=== PATIENT | male | born 1965 | race Caucasian/White ===

== ENCOUNTER 2016-11-29 10:28 | Emergency (ER) | payer OTHER ==
[~2016-11-29] VITALS: Ht 190.5 cm; Wt 100.0 kg
[2016-11-29 10:42] VITALS: BP 165/110; PULSE 86; RESP 16; O2SAT 96
--- NOTE | 2016-11-29 11:00 | ED.REPORT ---
HPI-General Illness Date of Service Nov 29, 2016 ED Provider: Jermaine Jacobs DO The patient is a 51 year old male who presents to the emergency department requesting medical clearance for alcohol detox. The [facility] has a [facility] later [facility]. The patient has been drinking alcohol regularly over the last few years but over the last few weeks he has started to drink in the morning. He drinks 24 beers and moderate amount of vodka each day. His last drink was 1.5 hours ago. He is concerned and would like to go to alcohol detox. He has been through alcohol withdrawal in the past. He denies history of withdrawal seizures or hospitalization for withdrawal. He does not use illicit drugs or smoke tobacco. At this time he has experienced increased anxiety and a mild headache. He denies any other physical complaints. Nursing Notes Stated Complaint: DETOX Chief Complaint: Substance Abuse Nursing Notes Reviewed: Yes Allergies: Uncoded Allergies: EVERYTHING (Allergy, Unknown, 11/29/16) PT STATES SENSITIVITY TO ALL MEDICATIONS. Scheduled Lorazepam (Ativan) 1 Mg Tablet 1 MG PO ASDIRECTED 2mg po q6hrs x24hrs, 1mg po [id number], 1mg po q8hrs x24hrs, 1mg po q12hrs x24hrs, 1mg po General Time Seen by MD: 10:50 Chief Complaint Medical clearance Hx Obtained From: Patient, Spouse Arrived By: Walk-in Sudden in Onset?: No Onset Occurred: More than a week ago... Symptom Duration: Since onset Location: : Head Quality: Painful Severity: Current: No pain currently Severity: Maximum: Mild Recent Healthcare: No recent doctor visit, No recent hospitalization Similar Sx Previous: Yes Past Medical History Past Medical History Denies Family History Noncontributory Smoking History Former Smoker Social History Alcohol Use: >5 per day Drug Use: Denies drug use Other Social History: Good social support, Local resident Ambulatory Status Independent Review of Systems +alcohol abuse Full Review of Systems Constitutional: Denies: Chills, Fever Respiratory: Denies: Non-productive cough, Shortness of breath Cardiovascular: Denies: Chest pain GI: Denies: Abdominal pain, Diarrhea, Nausea, Vomiting Skin: Denies Rash Neurologic: Reports: Headache Psychiatric: Reports: Anxiety Complete sys rev & neg: except as marked. Physical Exam Vital Signs Vital Signs Date Time Temp Pulse Resp B/P Pulse Ox O2 Delivery O2 Flow Rate FiO2 11/29/16 14:04 37 90 16 152/100 94 Room Air 11/29/16 13:43 101 16 155/102 96 Room Air 11/29/16 10:42 36.6 86 16 165/110 96 Room Air Initial VS: Reviewed Head / Eyes: Atraumatic, Normocephalic, PERRL ENT: Mucous membranes moist, Conjunctiva normal, No scleral icterus Neck: Supple, Non-tender, Full range of motion Respiratory: Breath sounds normal, Clear to auscultation, No respiratory distress Cardiovascular: Regular rate & rhythm, Heart sounds normal, Intact distal pulses Abdomen / GI: Soft, Non-tender, No guarding, No rebound, No distention Lymphatic: No lymphadenopathy Extremities: Vascular intact, Neuro intact, No swelling, No tenderness Skin: Warm, Dry, No cyanosis Psychiatric: Mood/affect normal, Behavior normal, Normal thought content General/Constitutional: Awake, Alert, Cooperative Neurologic: Oriented X3, Speech NL, No motor deficits, No sensory deficits, Cerebellar NL, Memory NL No tremors. Interpretation & Diagnostics Interpretation & Diagnostics: Breathalyzer: 0.283 Lab Results Interpretation Test 11/29/16 14:32 Re-Eval/Medical Decision Med Decision/Clinical Course He is a good candidate for outpatient detox at [facility]. Will start Ativan taper at 2 mg q6h. Source of Hx: Old records Time of Eval: 11:06 Re-Evaluation/Progress Note: Discussed plan to call the detox center to make sure there is a bed. The patient will be discharged with a prescription for Ativan to help with withdrawal symptoms. All questions were addressed. Time of Eval: 12:01 Re-Evaluation/Progress Note: Discussed with the patient's significant other about plan to wait until his breathalyzer is below 0.250. Consultation #1: Call Returned at: 11:09 Note: Spoke with the ED social insurance analyst. He will contact [facility]. Will wait for alcohol to be below 0.250 before sending to [facility]. Consultation #2: Consulted With: cargo worker Call Returned at: 13:48 Note: There is a bed available at [facility] at 1600 today. The social insurance analyst feels comfortable with the patient being discharged with his friend. She will case picker the prescription, get his CPAP, and take him to [facility] at 1600. Counseled Regarding: Diagnosis, Lab results, Need for follow-up, When/why to return to ED Discharge & Departure Primary Impression: Alcohol abuse Disposition: Home Discharge Condition All VS Reviewed: Yes Condition: Stable Additional Instructions: Thank you for entrusting us with your care today. You are medically cleared. You have a bed at [facility] at 4 PM today. Get your Ativan prescription and CPAP machine. Use the Ativan as prescribed. Do not drink alcohol prior to going to [facility]. Please return to the emergency department for any new or concerning symptoms. Referrals: NOPCP (PCP) Scribe Attestation Portions of this note were transcribed by Pat Ordaz. I, Dr. Jacobs personally performed the history, physical exam and medical decision-making; I reviewed and confirmed the accuracy of the information in the transcribed note. Signed by: Miryam Goodman, 11/29/2016 and 1400. Jermaine Jacobs DO Nov 29, 2016 10:59 Pat Ordaz Nov 29, 2016 11:03
[2016-11-29 13:43] VITALS: BP 155/102; PULSE 101; RESP 16; O2SAT 96
[2016-11-29] MEDS ORDERED: LORA-303 PO (13:55)
[2016-11-29 14:04] VITALS: BP 152/100; PULSE 90; RESP 16; O2SAT 94
[2016-11-29] MEDS ORDERED: CHLO25CA10 PO (21:45)
== END 2016-11-29 14:05 | disposition home or self-care (01) ==
LOC: SED 10:28
DX: F10.10 Alcohol abuse, uncomplicated (principal); Z87.891 Personal history of nicotine dependence

== ENCOUNTER 2016-11-29 17:39 | Emergency (ER) | payer OTHER ==
[~2016-11-29] VITALS: Ht 190.5 cm; Wt 100.0 kg
[~2016-11-29 17:39] MED LIST: LORA-303 PO
[2016-11-29 17:44] VITALS: BP 172/102; PULSE 112; RESP 18; O2SAT 97
--- NOTE | 2016-11-29 19:34 | ED.REPORT ---
HPI-Overdose/Alcohol Toxicity Date of Service Nov 29, 2016 ED Provider: Jaime Hancock MD A 51 year old male presents to the ED from crisis complaining of alcohol withdrawal and elevated heart rate onset earlier today. The patient was seen earlier today in ED and sent to [facility] on Lorazepam taper. Associated symptoms include anxiety, and tingling sensation and numbness in hands and face. He denies any diaphoresis or nausea. Per nurse note, the patient had HR of 112 at triage and took Ativan 2 hours ago. The patient reports drinking every day for the last month. He reports no history of hospitalization for alcoholism. The patient denies taking any prescription medications. He reports having blood work done approximately one year ago. Nursing Notes Stated Complaint: HIGH HEART RATE/BROUGHT FROM CRISIS Chief Complaint: General Complaint Nursing Notes Reviewed: Yes (Prevacus not reconciled) Allergies: Uncoded Allergies: EVERYTHING (Allergy, Unknown, 11/29/16) PT STATES SENSITIVITY TO ALL MEDICATIONS. Scheduled Chlordiazepoxide (Chlordiazepoxide) 25 Mg Capsule 50 MG PO BID Lorazepam (Ativan) 1 Mg Tablet 1 MG PO ASDIRECTED 2mg po q6hrs x24hrs, 1mg po [id number], 1mg po q8hrs x24hrs, 1mg po q12hrs x24hrs, 1mg po General Time Seen by Provider: 19:31 Chief Complaint Other (Withdrawal ) Hx Obtained From: Patient Arrived By: Walk-in Onset Occurred: 5 - 8 hours ago Symptom Duration: Since onset Recent Healthcare: Recent doctor visit Similar Sx Previous: Yes (Was seen in ED about 5 hours ago.) Past Medical History Past Medical History Notes: Patient seen earlier today in ED and sent to [facility] on Lor[facility]epam taper. Chart reviewed. HR 90 at time of D/C Past Medical History Denies Family History Noncontributory Smoking History Former Smoker Social History Alcohol Use: >5 per day Drug Use: Denies drug use Other Social History: Good social support, Local resident Ambulatory Status Independent Review of Systems Review of Systems Note: Alcohol withdrawal. Elevated HR. Tingling sensation and numbness in hands and face. GI: Denies: Nausea Skin: Denies Diaphoresis Psychiatric: Reports: Anxiety Complete sys rev & neg: except as marked. Physical Exam Initial Vital Signs Vital Signs (First) Date Time Temp Pulse Resp B/P Pulse Ox O2 Delivery O2 Flow Rate FiO2 11/29/16 17:44 36.5 112 18 172/102 97 Room Air Initial VS: Reviewed, Vital signs abnormal (mild tachycardia) General/Constitutional: Awake, Alert, Well appearing Still smells slightly of alcohol. Respiratory / Chest: Atraumatic, Breath sounds NL, Breath sounds = bilat, No respiratory distress, No rales, No rhonchi, No wheezing Cardiovascular: No gallop, No murmurs, No rubs Heart Rate / Rhythm: Positive: Tachycardia (Mild, low grade. ) Abdomen: Atraumatic, No guarding, No rebound Neurologic: Speech NL (Speech is clear) Mentating normally. Not tremulous. Psychiatric: Affect NL, Mood NL Not delerious Head / Eyes: Atraumatic, Normocephalic, PERRL, EOMI ENT: Atraumatic, Mucous membranes moist Neck: Atraumatic, Full range of motion Skin: Atraumatic, Color NL, No rash, Warm, Dry Upper Extremity / MS: Atraumatic, Full range of motion Wrist / Hand: Atraumatic, Full range of motion Lower Extremity / Pelvis / MS: Atraumatic, Full range of motion Interpretation & Diagnostics Lab Results Interpretation Result Diagram: 11/29/16195111/29/161951 Test 11/29/16 19:52 White Blood Count 3.6th/mm3 (3.8-10.1) Red Blood Count 4.34mil/mm3 (4.40-5.80) Hemoglobin 14.7g/dL (13.8-17.2) Hematocrit 41.8% (41.0-50.0) Mean Corpuscular Volume 96.3fL (81-100) Mean Corpuscular Hemoglobin 33.9pg (27.0-35.0) Mean Corpuscular Hemoglobin Concent 35.2% (32.0-37.0) Red Cell Distribution Width 13.0% (12.3-15.4) Platelet Count 182bil/L (150-400) Neutrophils (%) (Auto) 49.2% (40-74) Lymphocytes (%) (Auto) 32.8% (14-46) Monocytes (%) (Auto) 16.5% (4-12) Eosinophils (%) (Auto) 0.3% (0-5) Basophils (%) (Auto) 0.6% (0-3) Prothrombin Time 10.5sec (8.1-12.5) Prothromb Time International Ratio 0.98ratio Sodium Level 138mEq/L (134-144) Potassium Level 4.0mEq/L (3.5-5.2) Chloride Level 97mEq/L (97-108) Carbon Dioxide Level 20mmol/L (18-29) Blood Urea Nitrogen 8mg/dL (6-24) Creatinine 0.63mg/dL (0.76-1.27) Estimat Glomerular Filtration Rate 142mL/min (>59) Glucose Level 83mg/dL (60-99) Calcium Level 9.3mg/dL (8.5-10.1) Total Bilirubin 0.4mg/dL (0.0-1.2) Aspartate Amino Transf (AST/SGOT) 127U/L (0-50) Alanine Aminotransferase (ALT/SGPT) 106U/L (0-44) Alkaline Phosphatase 45U/L (25-150) Total Protein 7.4g/dL (6.4-8.4) Albumin 4.5g/dL (3.4-5.0) Hold Swanson Top Tube Received (Received) Lab Results Interpretation: Trace leukopenia CMP mild transaminitis consistent with alcohol abuse INR normal Re-Eval/Medical Decision Med Decision/Clinical Course This is a 51-year-old male who was seen and screened earlier today in the emergency department for alcoholism and sent to [facility], but was sent back heartbeat of 110. Regular exam is wide awake, he appears well, he does not appear in clinically evident withdrawal, but he does have a mild tachycardia -he says he feels much better. He does think the lorazepam he was given earlier markedly helped. He has no prior history of hospitalizations, withdrawal-but does note that he was drinking much more alcohol over this past month that in the past. He has no tremor, no diaphoresis, and is mentating normally. He has no complaints of chest pain, no complaints to suggest infection, no complaints of palpitations, no history of blood loss-no clinical features of an alternative oral otherwise concerning cause of her low-grade tachycardia, evidently does point at mild EtOH withdrawal He did receive dose of Librium, given a slower onset may smooth out the benzodiazepines for withdrawal process. The patient alcohol is down to 0.07-at this point the plan was simply watched for several hours to see if there is progression indicating need for admission. Baseline labs were drawn, and revealed a mild transaminitis. Patient did well, and several rechecks he is feeling better, in fact he sleeping comfortably. with no clinical signs of withdrawl. His measured CIWA scale was down to 3. I am not finding indication requires hospitalization, he is doing well what I will do is add a low dose librium twice a day 50mg for 3 days on top of the lorazepam taper to help prevent withdrawal. Source of Hx: Old records Re-Evaluation/Progress : Time of Eval: 21:39 Re-Evaluation/Progress Note: Rechecked patient and explained test results. Patient understands explanation. Differential Diagnosis: Positive: Alcohol abuse, Negative: Homicidal, Intoxication, other drug, Overdose, other, Schizophrenia , Suicidal attempt, Suicidal gesture Counseled Regarding: Diagnosis, Lab results, Need for follow-up, When/why to return to ED Discharge & Departure Impression: Primary Impression: Alcohol abuse Discharge Condition All VS Reviewed: Yes Condition: Improved Additional Instructions: 1. You were re-evaluated and remain doing well enough to continue at [facility] services. Your CIWA scale (a scale used to measure withdrawal was 3, and you were observed for several hours and have done well.) 2. Continue your lorazepam taper as prescribed. 3. You can also take chlordiazepoxide 25mg twice a day for the next 3 days to also help prevent withdrawal. (This is a longer acting, gentle benzodiazepine also used to prevent withdrawal) 4. If you need a primary care provider, follow up with the [facility] Referrals: DORINDA (PCP) Miryam Attestation Portions of this note were transcribed by Elton Dahl. I, Dr. Hancock personally performed the history, physical exam and medical decision-making; I reviewed and confirmed the accuracy of the information in the transcribed note. Signed by: Miryam Durand, 11/29/2016and 0665. copies to: Jaime Rodriguez MD Nov 29, 2016 19:34 Elton Dahl Nov 29, 2016 19:44
[2016-11-29] MEDS ORDERED: chlordiazePOXIDE 25 mg Capsule PO ONE (19:40)
[2016-11-29 20:01] LABS: BASOPHILS % (AUTO) 0.6 % (0-3); EOSINOPHILS % (AUTO) 0.3 % (0-5); MONOCYTES % (AUTO) 16.5 % (4-12); Mean Corpuscular Hemoglobin 33.9 pg (27.0-35.0); Mean Corpuscular Volume 96.3 fL (81-100); NEUTROPHILS % (AUTO) 49.2 % (40-74); Platelet Count 182 bil/L (150-400)
[2016-11-29 20:19] LABS: INR 0.98 ratio
[2016-11-29 20:40] VITALS: BP 165/98; PULSE 112; RESP 16; O2SAT 96
[2016-11-29] MEDS ORDERED: LORazepam 2 mg Tablet PO ONE (21:45)
[2016-11-29] MEDS ORDERED: CHLO25CA10 PO (21:45)
[2016-11-29 22:25] VITALS: BP 159/112; PULSE 111; RESP 16; O2SAT 95
== END 2016-11-29 22:54 | disposition home or self-care (01) ==
LOC: SED 17:39
DX: F10.10 Alcohol abuse, uncomplicated (principal); R00.0 Tachycardia, unspecified; F41.9 Anxiety disorder, unspecified; R20.2 Paresthesia of skin; Z87.891 Personal history of nicotine dependence

== ENCOUNTER 2016-11-30 18:10 | Emergency (ER) | payer OTHER ==
[~2016-11-30] VITALS: Ht 190.5 cm; Wt 100.0 kg
[~2016-11-30 18:10] MED LIST changes: +CHLO25CA10 PO
[2016-11-30 18:16] VITALS: BP 188/108; PULSE 112; RESP 20; O2SAT 95
--- NOTE | 2016-11-30 19:00 | ED.REPORT ---
HPI-General Illness Date of Service Nov 30, 2016 ED Provider: Humza Pearson MD Pt is a 51 y.o. male with a hx of ETOH abuse who presents to the ED c/o elevated heart rate and blood pressure. Pt was seen in the ED yesterday and [facility] to [facility] for [facility]TOH withdrawal, he was sent back to the ED due to tachycardia and elevated blood pressure. He was discharged to [facility] again after his elevated HR and BP resolved. Upon returning to [facility] he again experienced tachycardia and elevated blood pressure. Crisis will not allow him to stay there with abnormal vital signs. He reports associated palpitations, headache, and anxiety. He was started on an Ativan taper yesterday. Nursing Notes Stated Complaint: BLOOD PRESSURE AND HEART RATE ISSUES FROM [facility] Chief Complaint: General Complaint Nursing Notes Reviewed: Yes Allergies: Coded Allergies: No Known Allergies (Unverified , 11/30/16) Scheduled Chlordiazepoxide (Chlordiazepoxide) 25 Mg Capsule 50 MG PO BID Lorazepam (Ativan) 1 Mg Tablet 1 MG PO ASDIRECTED 2mg po q6hrs x24hrs, 1mg po [id number], 1mg po q8hrs x24hrs, 1mg po q12hrs x24hrs, 1mg po General Time Seen by MD: 18:34 Chief Complaint Other (Elevated heart rate and blood pressure) Hx Obtained From: Patient Sudden in Onset?: Yes Severity: Current: No pain currently Severity: Maximum: No pain Past Medical History Past Medical History Notes: Patient seen earlier today in ED and sent to [facility] on Lor[facility]epam taper. Chart reviewed. HR 90 at time of D/C Past Medical History Denies Past Surgical History None reported Family History Noncontributory Smoking History Former Smoker Social History Alcohol Use: >5 per day Drug Use: Denies drug use Other Social History: Good social support, Local resident Ambulatory Status Independent Review of Systems Elevated HR and BP Full Review of Systems Cardiovascular: Reports: Palpitations Neurologic: Reports: Headache Psychiatric: Reports: Anxiety Complete sys rev & neg: except as marked. Physical Exam Vital Signs Vital Signs Date Time Temp Pulse Resp B/P Pulse Ox O2 Delivery O2 Flow Rate FiO2 11/30/16 21:50 80 18 174/112 98 Room Air 11/30/16 21:18 80 18 174/112 98 Room Air 11/30/16 20:11 101 18 179/119 97 Room Air 11/30/16 18:16 36.7 112 20 188/108 95 Room Air Initial VS: Reviewed Head / Eyes: Atraumatic, Normocephalic Extremities: Vascular intact, Neuro intact Skin: Warm, Dry, No cyanosis Psychiatric: Mood/affect normal, Behavior normal, Normal thought content General/Constitutional: Awake, Alert, Well appearing, Well developed, Well hydrated, Well nourished, Not toxic appearing Respiratory / Chest: Atraumatic, Breath sounds NL, Breath sounds = bilat, No respiratory distress, No rales, No rhonchi, No wheezing, No retractions, No stridor Cardiovascular: Peripheral circulation NL Heart Rate / Rhythm: Positive: Tachycardia No lower extremity edema or tenderness Abdomen: Atraumatic, Soft, Non-tender, No guarding, No rebound, No distention Neurologic: Oriented X3, Speech NL Speech: Negative: Slurred Focal Weakness: Negative: Pronator drift L, Pronator drift R No laterizing neurological deficits 01/30 induction heat treater strength Interpretation & Diagnostics Lab Results Interpretation Result Diagram: 11/30/16 1853 11/30/16 1853 Test 11/30/16 18:23 11/30/16 18:53 Alcohol, Quantitative < 10mg/dL (0-10) White Blood Count 4.5th/mm3 (3.8-10.1) Red Blood Count 3.98mil/mm3 (4.40-5.80) Hemoglobin 13.5g/dL (13.8-17.2) Hematocrit 38.7% (41.0-50.0) Mean Corpuscular Volume 97.2fL (81-100) Mean Corpuscular Hemoglobin 33.9pg (27.0-35.0) Mean Corpuscular Hemoglobin Concent 34.9% (32.0-37.0) Red Cell Distribution Width 12.6% (12.3-15.4) Platelet Count 172bil/L (150-400) Neutrophils (%) (Auto) 62.9% (40-74) Lymphocytes (%) (Auto) 19.7% (14-46) Monocytes (%) (Auto) 16.4% (4-12) Eosinophils (%) (Auto) 0.4% (0-5) Basophils (%) (Auto) 0.4% (0-3) Sodium Level 137mEq/L (134-144) Potassium Level 3.4mEq/L (3.5-5.2) Chloride Level 99mEq/L (97-108) Carbon Dioxide Level 21mmol/L (18-29) Blood Urea Nitrogen 8mg/dL (6-24) Creatinine 0.58mg/dL (0.76-1.27) Estimat Glomerular Filtration Rate 156mL/min (>59) Glucose Level 173mg/dL (60-99) Calcium Level 9.1mg/dL (8.5-10.1) Magnesium Level 1.9mg/dL (1.6-2.6) Total Bilirubin 0.8mg/dL (0.0-1.2) Aspartate Amino Transf (AST/SGOT) 98U/L (0-50) Alanine Aminotransferase (ALT/SGPT) 87U/L (0-44) Alkaline Phosphatase 47U/L (25-150) Total Protein 6.6g/dL (6.4-8.4) Albumin 4.2g/dL (3.4-5.0) Thyroid Stimulating Hormone (TSH) 2.850uIU/mL (0.450-4.500) Hold Swanson Top Tube Received (Received) ECG Interpretation Time: 18:39 Interpreted by: ED physician Normal ECG Interpretation: Normal sinus rhythm, No acute ischemic changes, Normal QRS, Normal axis, Normal intervals Rhythm / Conduction: Tachycardia (103) Re-Eval/Medical Decision Med Decision/Clinical Course Pt is a 51 y.o. male with a hx of ETOH abuse who presents to the ED c/o elevated heart rate and blood pressure. Pt was seen in the ED yesterday and [facility] to [facility] for [facility]H withdrawal, he was sent back to the ED due to tachycardia and elevated blood pressure. He was discharged to [facility] again after his elevated HR and BP resolved and Librium was added to his Ativan taper. Upon returning to [facility] he again experienced tachycardia and elevated blood pressure. He was sent back to the emergency room because these vital signs are not within the acceptable range at [facility]. Here in the emergency department he is hypertensive and borderline tachycardic but otherwise calm and in no apparent distress. He reports that he thinks he is experiencing some symptoms of alcohol withdrawal though is not in any florid alcohol withdrawal with relatively low CIWA score. He has no other associated symptoms suggestive of hypertensive emergency. Notably he has no headache, blurry vision, chest pain, shortness of breath, numbness or tingling. Treated with 2 mg of oral Ativan and blood pressure and heart rate improved. Due to ongoing hypertension he was reportedly not allowed back to [facility] and I gave him 1 small dose of oral metoprolol. He had moderate improvement in his blood pressure. CBC and CMP were relatively unremarkable except for mild transaminitis. He had no evidence of renal injury. I discussed the patient in depth with nurse at [facility] and explained that I see no evidence of hypertensive emergency at this time. I suspect the patient likely has underlying hypertension which is exacerbated setting of alcohol withdrawal. I am hesitant to start an antihypertensive at this time simply to meet arbitrayy parameters imposed by [facility]. While the patient may need to start an antihypertensive I see no indication to do it at this minute and it would seem to be more prudent to have this done by primary care physician after he is out of the acute phase of his alcohol withdrawal. He does not appear in any florid alcohol withdrawal treatment indicate possible admission. They agreed to take the patient back to [facility] and hopefully his blood pressure and heart rate will stay in parameter now that his alcohol withdrawal is improving. He will continue on his Ativan taper and they will give him his Librium as previously prescribed as well. Follow-up and return precautions were reviewed in detail the patient was discharged in good condition. Source of Hx: Old records Consultation : Call Returned at: 21:23 Note: Spoke with Ozzy at [facility] regarding pt's current condition. Counseled Regarding: Diagnosis Discharge & Departure Primary Impression: Alcohol withdrawal Complication of substance-induced condition: uncomplicated Qualified Code: F10.230 - Alcohol dependence with withdrawal, uncomplicated Additional Impressions: HTN (hypertension) Hypertension type: unspecified secondary hypertension Hypertension goal: unspecified goal Qualified Code: I15.9 - Secondary hypertension, unspecified Tachycardia Transaminitis Alcohol abuse Disposition: Home Discharge Condition All VS Reviewed: Yes Condition: Stable Additional Instructions: Thank you for seeking care at emergency room. It is difficult for us to make definitive diagnoses in the ED but we believe that you are experiencing the effects of alcohol withdrawal. Your sent here from [facility] because your blood pressure was high, however in the setting of alcohol withdrawal I do not feel that starting you on a new blood pressure medicine is indicated. You may need to start a blood pressure medication however I will defer this to your primary care doctor and your blood pressure should be addressed after you are done withdrawing from alcohol. Please continue the Ativan taper that was prescribed. Our primary goal today in the ED was to evaluate you for any life-threatening conditions. Your evaluation was reassuring. . You should follow-up with your primary doctor in the next week. You should return to the ED immediately if you develop headaches, blurry vision , chest pain, fevers, vomiting, cough, shortness of breath, lightheadedness, weakness or any other concerning signs or symptoms. Thank you for letting us partake in your care today. Referrals: NOPCP (PCP) [facility] Miryam Attestation Portions of this note were transcribed by Daniel Mendez. I, Dr. Pearson personally performed the history, physical exam and medical decision-making; I reviewed and confirmed the accuracy of the information in the transcribed note. Signed by: Miryam Head, 11/30/16 and [id number]. copies to: Humza Mena MD Nov 30, 2016 19:00 DANIEL MENDEZ Nov 30, 2016 20:04
[2016-11-30 19:01] LABS: BASOPHILS % (AUTO) 0.4 % (0-3); EOSINOPHILS % (AUTO) 0.4 % (0-5); MONOCYTES % (AUTO) 16.4 % (4-12); Mean Corpuscular Hemoglobin 33.9 pg (27.0-35.0); Mean Corpuscular Volume 97.2 fL (81-100); NEUTROPHILS % (AUTO) 62.9 % (40-74); Platelet Count 172 bil/L (150-400)
[2016-11-30] MEDS ORDERED: LORazepam 2 mg Tablet PO ONE (19:05)
[2016-11-30 19:29] LABS: Magnesium 1.9 mg/dL (1.6-2.6)
[2016-11-30 20:11] VITALS: BP 179/119; PULSE 101; RESP 18; O2SAT 97
[2016-11-30 21:18] VITALS: BP 174/112; PULSE 80; RESP 18; O2SAT 98
[2016-11-30 21:50] VITALS: BP 174/112; PULSE 80; RESP 18; O2SAT 98
== END 2016-11-30 21:50 | disposition home or self-care (01) ==
LOC: SED 18:10
DX: F10.230 Alcohol dependence with withdrawal, uncomplicated (principal); I10 Essential (primary) hypertension; R00.0 Tachycardia, unspecified; R74.0 Nonspecific elevation of levels of transaminase and lactic acid dehydrogenase [LDH]; Z87.891 Personal history of nicotine dependence
CPT/HCPCS: 36415; 80053; 83735; 84443; 85025; 93005; 99284; G0480

== ENCOUNTER 2017-01-03 12:28 | Emergency (ER) | payer OTHER ==
[~2017-01-03] VITALS: Ht 190.5 cm; Wt 102.3 kg
[2017-01-03 12:40] VITALS: BP 150/101; PULSE 88; RESP 10; O2SAT 96
--- NOTE | 2017-01-03 12:59 | ED.REPORT ---
HPI-Overdose/Alcohol Toxicity Date of Service Jan 03, 2017 ED Provider: Esha Whitlock History of Present Illness: planning to go to detox, has a bed at 3 pm. sent here for clearance. last drink this am had 5 beers per his report. no primary care. no medication. anxiety and vomiting with stopping drinking. girlfriend requesting he have 4 tablets of clonzapam Nursing Notes Stated Complaint: [facility] Chief Complaint: Substance Abuse Nursing Notes Reviewed: Yes Allergies: Coded Allergies: No Known Allergies (Unverified , 11/30/16) Scheduled Chlordiazepoxide (Chlordiazepoxide) 25 Mg Capsule 50 MG PO BID Lorazepam (Ativan) 1 Mg Tablet 1 MG PO ASDIRECTED 2mg po q6hrs x24hrs, 1mg po [id number], 1mg po q8hrs x24hrs, 1mg po q12hrs x24hrs, 1mg po General Time Seen by Provider: 12:59 Chief Complaint Intoxicated, alcohol Hx Obtained From: Patient Risk-Overdose/Alcohol Tox )( Suicide Risk Stratification : Access to firearms (has 3 or 4 weapons in home, not locked up): Alcohol use ( daily more than 5 beers a day, usually beer): Family Hx of Suicide (on mother's side): Substance abuseNo: Close associate suicide, Previous attempt, Prior psych admission RF Statements: Risk factors reviewed Past Medical History Past Medical History Notes: Patient seen earlier today in ED and [facility] to [facility] Lor[facility]epam taper. Chart reviewed. 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 Ambulatory Status Independent Review of Systems Basic Review of Systems : No dysuria, No frequency Allergy / Immune: No allergy Physical Exam Initial Vital Signs Vital Signs (First) Date Time Temp Pulse Resp B/P Pulse Ox O2 Delivery O2 Flow Rate FiO2 01/03/17 12:40 36.2 88 10 150/101 96 Room Air Initial VS: Reviewed, Vital signs abnormal Head / Eyes: Atraumatic, Normocephalic, PERRL ENT: Mucous membranes moist, Conjunctiva normal, No scleral icterus Neck: Supple, Non-tender, Full range of motion Back: No CVA tenderness Lymphatic: No lymphadenopathy Extremities: Vascular intact, Neuro intact, No swelling, No tenderness Skin: Warm, Dry, No cyanosis General/Constitutional: Awake, Alert, No acute distress, Well appearing, Well developed, Well hydrated, Well nourished, Cooperative, Not toxic appearing Respiratory / Chest: Atraumatic, Breath sounds NL, Breath sounds = bilat, No respiratory distress Cardiovascular: Heart rate NL, Regular rhythm, Heart sounds NL, No gallop Abdomen: Atraumatic, Soft, Non-tender, McBurney's non-tender Neurologic: Oriented X3, Speech NL, No motor deficits, No sensory deficits, CN II - XII intact, Reflexes equal bilat Psychiatric: Affect NL, Mood NL, Not suicidal ENT: Atraumatic, Airway patent, Mucous membranes moist, Pharynx NL Interpretation & Diagnostics Lab Results Interpretation Test 01/03/17 12:45 Hold Urine Received (Received) Re-Eval/Medical Decision Med Decision/Clinical Course 51 year old male with long hx of alcohol use presents wanting detox. Does have a bed at 3 pm. Has bed and has been verified by [facility]. Cleared to go to [facility]. No sign of conversion disorder. Discharge & Departure Impression: Primary Impression: Alcohol abuse Additional Impression: HTN (hypertension) Hypertension type: unspecified secondary hypertension Qualified Code: I15.9 - Secondary hypertension, unspecified Patient Instructions: Abuse of Alcohol (ED), Alcohol Intoxication (ED), Alcohol Withdrawal (ED) Additional Instructions: Your alcohol level is quite high. You have a bed at [facility] at 3 pm. You are being provided an ativan taper. Please work with Crisis to stay clean and sober. Follow with primary care. You are being provided a prescription for blood pressure. Please follow with primary care. Referrals: [facility] EDSupervising Provider for APC: Arnol Mccoy MD copies to: [facility] Esha Whitlock Jan 03, 2017 12:59
[2017-01-03 13:35] VITALS: BP 133/99; PULSE 94; RESP 14; O2SAT 95
== END 2017-01-03 14:23 | disposition home or self-care (01) ==
LOC: SED 12:28
DX: F10.129 Alcohol abuse with intoxication, unspecified (principal); I15.9 Secondary hypertension, unspecified; Z87.891 Personal history of nicotine dependence

== ENCOUNTER 2017-01-04 19:56 | Emergency (ER) | payer OTHER ==
[~2017-01-04] VITALS: Ht 190.5 cm; Wt 102.3 kg
[2017-01-04 20:15] VITALS: BP 172/107; PULSE 100; RESP 16; O2SAT 96
[2017-01-04 21:21] VITALS: BP 209/120; PULSE 91; RESP 22; O2SAT 98
--- NOTE | 2017-01-04 21:32 | ED.REPORT ---
HPI-General Illness Date of Service Jan 04, 2017 ED Provider: Oscar Stevenson MD Patient is a 51 year old male with a history of alcoholism presenting [facility] the [facility] from [facility] after he developed hypertension while withdrawing from alcohol today. His blood pressure was reported at 180/115 prior to arrival. The patient came to the ED yesterday for alcohol withdrawal and was given Ativan to help taper off. Patient states that this taper was too rapid for him and that he will need a different taper dose if he is to be successful. Patient reports associated shaking and diaphoresis. He denies nausea or vomiting. Nursing Notes Stated Complaint: HIGH BLOOD PRESSURE, SENT FROM CRISIS Chief Complaint: General Complaint Nursing Notes Reviewed: Yes Allergies: Coded Allergies: No Known Allergies (Unverified , 11/30/16) Scheduled Chlordiazepoxide (Chlordiazepoxide) 25 Mg Capsule 50 MG PO BID Clonidine (Clonidine) 0.1 Mg Tablet 0.1 MG PO TID Lorazepam (Ativan) 1 Mg Tablet 1 MG PO ASDIRECTED 2mg po q6hrs x24hrs, 1mg po [id number], 1mg po q8hrs x24hrs, 1mg po q12hrs x24hrs, 1mg po Scheduled PRN Lorazepam (Lorazepam) 2 Mg Tablet 2 MG PO DIRECTED PRN PRN Withdrawal Symptoms General Time Seen by MD: 21:30 Chief Complaint Other (hypertension) Hx Obtained From: Patient Arrived By: Walk-in Onset Occurred: 1 day ago Severity: Current: No pain currently Severity: Maximum: No pain Recent Healthcare: Recent doctor visit Similar Sx Previous: Yes Past Medical History Past Medical History alcohol abuse Past Surgical History None reported Family History Noncontributory Smoking History Former Smoker Social History Alcohol Use: >5 per day Drug Use: Denies drug use Other Social History: Good social support, Local resident Occupation lives alone, 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 Physical Exam Vital Signs Vital Signs Date Time Temp Pulse Resp B/P Pulse Ox O2 Delivery O2 Flow Rate FiO2 01/05/17 01:53 36.4 73 19 148/110 100 Room Air 01/05/17 01:52 73 19 148/110 100 Room Air 01/05/17 00:13 101 152/101 01/04/17 23:32 81 18 166/107 99 Room Air 01/04/17 22:29 84 13 160/98 84 Room Air 01/04/17 21:21 91 22 209/120 98 Room Air 01/04/17 20:15 36.4 100 16 172/107 96 Initial VS: Reviewed, Vital signs abnormal General/Constitutional: Awake, Alert, No acute distress tremulous Head / Eyes: Atraumatic, Normocephalic, PERRL, EOMI ENT: Airway patent, Mucous membranes moist Neck: Supple, Full range of motion Respiratory / Chest: Breath sounds NL, Breath sounds = bilat, No respiratory distress, No rales, No rhonchi, No wheezing Cardiovascular: Regular rhythm, Heart sounds NL, No murmurs Heart Rate / Rhythm: Positive: Tachycardia Abdomen: Atraumatic, Soft, Non-tender Upper Extremities Upper Extremity / MS: Atraumatic Lower Extremity / Pelvis / MS: Atraumatic Skin: Color NL, Warm Color / Condition: Positive: Diaphoresis present Neurologic: Oriented X3, Speech NL, No motor deficits, No sensory deficits Psychiatric: Affect NL, Mood NL Re-Eval/Medical Decision Med Decision/Clinical Course 51-year-old male with high blood pressure related to alcohol withdrawal. His blood pressure was controlled with clonidine. He was given a 5 day prescription of clonidine to use in addition to his metoprolol during the withdrawal phase. He was also given 5 additional Ativan tablets and his standard taper will be restarted to give him a little bit more control. Source of Hx: Old records Time of Eval: 22:40 Re-Evaluation/Progress Note: Rechecked patient who still seems anxious. Time of Eval: 23:06 Patient Status: Condition improved Re-Evaluation/Progress Note: Rechecked patient whose condition has improved. The patient is not diaphoretic but has an elevated blood pressure of 163/113. Discussed plan for another dose of Clonidine Time of Eval: 01:37 Patient Status: Condition improved Re-Evaluation/Progress Note: Rechecked patient, his blood pressure is now more controlled. Discussed plan for treatment and discharge with the patient's . The patient's understands and agrees to the plan for discharge. All questions were addressed. Consultation : Call Returned at: 01:39 Note: Consult with [facility]. Discussed plan for treatment and discharge of the patient. Counseled Regarding: Diagnosis, Need for follow-up, When/why to return to ED Discharge & Departure Primary Impression: Alcohol withdrawal Complication of substance-induced condition: uncomplicated Qualified Code: F10.230 - Alcohol dependence with withdrawal, uncomplicated Additional Impression: HTN (hypertension) Hypertension type: unspecified secondary hypertension Qualified Code: I15.9 - Secondary hypertension, unspecified Disposition: Home (return to [facility]) Discharge Condition All VS Reviewed: Yes Condition: Stable Patient Instructions: Alcohol Withdrawal (ED) Additional Instructions: Restart the Ativan taper 2 mg every 6 hours for one day then 1 mg every 6 hours for 2 days then 1 mg every 12 hours until gone, a prescription was written for an additional 5 tablets to go with the 4-1/2 tablets that you currently have. Continue the metoprolol. Clonidine 1 mg 3 times daily for the next 5 days, #15 prescription written. Return to [facility]. Referrals: [facility] Scribe Attestation Portions of this note were transcribed by Fadumo Kaplan and Sharifa Monge. I, Dr. Stevenson personally performed the history, physical exam and medical decision-making; I reviewed and confirmed the accuracy of the information in the transcribed note. Signed by: Fadumo Kaplan and Miryam Guadarrama, and 0304. copies to: [facility] Oscar Stevenson MD Jan 04, 2017 21:32 Enedelia Kaplan Jan 04, 2017 21:40 Sharifa Monge Jan 05, 2017 02:52
[2017-01-04] MEDS ORDERED: LORazepam 2 mg Tablet PO ONE (21:40)
[2017-01-04] MEDS ORDERED: cloNIDine 0.1 mg Tablet PO ONE ×2 (21:40→23:10)
[2017-01-04 22:29] VITALS: BP 160/98; PULSE 84; RESP 13; O2SAT 84
[2017-01-04 23:32] VITALS: BP 166/107; PULSE 81; RESP 18; O2SAT 99
[2017-01-05 00:13] VITALS: BP 152/101; PULSE 101
[2017-01-05] MEDS ORDERED: CLON0.1T PO (01:50)
[2017-01-05] MEDS ORDERED: LORA2TAB PO (01:50)
[2017-01-05 01:52] VITALS: BP 148/110; PULSE 73; RESP 19; O2SAT 100
[2017-01-05 01:53] VITALS: BP 148/110; PULSE 73; RESP 19; O2SAT 100
== END 2017-01-05 02:01 | disposition home or self-care (01) ==
LOC: SED 19:56
DX: F10.230 Alcohol dependence with withdrawal, uncomplicated (principal); I15.8 Other secondary hypertension; F17.200 Nicotine dependence, unspecified, uncomplicated

== ENCOUNTER 2017-01-05 21:39 | Emergency (ER) | payer OTHER ==
[~2017-01-05] VITALS: Ht 190.5 cm; Wt 102.3 kg
[~2017-01-05 21:39] MED LIST changes: +CLON0.1T PO; +LORA2TAB PO
[2017-01-05 21:52] VITALS: BP 157/101; PULSE 84; RESP 16; O2SAT 98
--- NOTE | 2017-01-05 23:13 | ED.REPORT ---
HPI-General Illness Date of Service Jan 05, 2017 ED Provider: Oscar Stevenson MD Patient is a 51 year old male with a history of alcohol abuse and hypertension who [facility] the [facility] from [facility] after they recorded a high blood pressure at their facility just prior to arrival. Patient states his blood pressure was approximately 200/119, but it is down to 157/101 on arrival to the ED. He admits to drinking alcohol after he left [facility] tonight, stating that he just wanted to get his blood pressure down. Prior to this he had not consumed alcohol 3 days ago. He typically drinks 30 beers per day. The patient states he did not receive his medications at their scheduled times while at [facility]. The patient was unable to get the morning dose of Clonidine this morning, as the prescription could not be filled until later in the day. He received this medication at 3pm and 6pm. He received his Metoprolol at 9am and 9pm as scheduled. His Ativan taper was given as prescribed. Patient denies any medical complaints at this time. Nursing Notes Stated Complaint: DETOX HIGH BLOOD PRESSURE Chief Complaint: General Complaint Nursing Notes Reviewed: Yes Allergies: Coded Allergies: No Known Allergies (Unverified , 01/05/17) Scheduled Chlordiazepoxide (Chlordiazepoxide) 25 Mg Capsule 50 MG PO BID Clonidine (Clonidine) 0.1 Mg Tablet 0.1 MG PO TID Lorazepam (Ativan) 1 Mg Tablet 1 MG PO ASDIRECTED 2mg po q6hrs x24hrs, 1mg po [id number], 1mg po q8hrs x24hrs, 1mg po q12hrs x24hrs, 1mg po Scheduled PRN Lorazepam (Lorazepam) 2 Mg Tablet 2 MG PO DIRECTED PRN PRN Withdrawal Symptoms General Time Seen by MD: 23:06 Chief Complaint Other (high blood pressure) Hx Obtained From: Patient Arrived By: Walk-in Sudden in Onset?: No Onset Occurred: Just prior to arrival Symptom Duration: Since onset Severity: Current: No pain currently Severity: Maximum: No pain Recent Healthcare: No recent hospitalization, Recent doctor visit Similar Sx Previous: Yes Past Medical History Past Medical History alcohol abuse Reports: Hypertension Past Surgical History None reported Family History Noncontributory Smoking History Former Smoker Social History Alcohol Use: >5 per day Drug Use: Denies drug use Other Social History: Good social support, Local resident Occupation lives alone, 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 Physical Exam Vital Signs Vital Signs Date Time Temp Pulse Resp B/P Pulse Ox O2 Delivery O2 Flow Rate FiO2 01/05/17 21:52 37.2 84 16 157/101 98 Room Air Initial VS: Reviewed, Vital signs abnormal Head / Eyes: Atraumatic, Normocephalic, PERRL ENT: Mucous membranes moist, Conjunctiva normal, No scleral icterus Neurologic: Alert, Oriented, Nonfocal Psychiatric: Mood/affect normal, Behavior normal, Normal thought content General/Constitutional: Awake, Alert, No acute distress No physical exam evidence of withdrawal. He is no tremulous. Appears sleepy and drowsy. Smells of EtOH. Neck: Supple, Full range of motion Respiratory / Chest: Breath sounds NL, Breath sounds = bilat, No respiratory distress, No rales, No rhonchi, No wheezing Cardiovascular: Heart rate NL, Regular rhythm, Heart sounds NL, No murmurs Abdomen: Soft, Non-tender Skin: Color NL, Warm, Dry Color / Condition: Negative: Diaphoresis present Interpretation & Diagnostics Interpretation & Diagnostics: Breathalyzer: 0.170 Re-Eval/Medical Decision Med Decision/Clinical Course 51-year-old male who was seen by me yesterday for withdrawal induced hypertension. He was started on clonidine and referred back to [facility]. Today his blood pressure was again up. He was sent by POV from there to here and drink on the way. His alcohol level is 0.173. He does not want to go back to [facility] services. He will be discharged home. He wants to try just cutting back by a small amount of beer every day. He will talk to his doctor if there are further problems. Source of Hx: Old records Time of Eval: 23:42 Re-Evaluation/Progress Note: The patient states that he no longer wants to go back to [facility]. The patient is used to wide open spaces and having a large house. Living in a small room is confining. Patient plans to stop drinking alcohol on his own, by reducing 1 beer per day. Time of Eval: 00:24 Re-Evaluation/Progress Note: Patient is requesting new prescriptions of his blood pressure medications, as he does not want to return to [facility] to retrieve them. The patient lives 2 hours away from here. Discharge instructions and follow-up discussed. All questions were addressed. Return to the ED warnings given. Consultation #1: Call Returned at: 23:35 Note: Spoke with [facility]. The patient's blood pressure is now well controlled, in part because he consumed alcohol after drink leaving their facility. They agree to accept the patient back at their facility. Consultation #2: Call Returned at: 23:44 Note: Informed [facility] that the patient has elected not to return to their facility. They should not give the patient his Ativan. Counseled Regarding: Diagnosis, Need for follow-up, When/why to return to ED Discharge & Departure Primary Impression: HTN (hypertension) Hypertension type: unspecified secondary hypertension Qualified Code: I15.9 - Secondary hypertension, unspecified Additional Impressions: Alcohol withdrawal Complication of substance-induced condition: with unspecified complication Qualified Code: F10.239 - Alcohol dependence with withdrawal, unspecified Alcohol abuse Disposition: Home Discharge Condition All VS Reviewed: Yes Condition: Stable Patient Instructions: Alcohol Withdrawal (ED) Additional Instructions: I recommend that you continue your stay at [facility] because this is your best way to achieve and maintain sobriety. However, you may choose not to return. Do need to clam picker your blood pressure medicines there. I cannot send her home with a lorazepam (Ativan) taper in this situation. It is a workable plan for you to slowly quit drinking, but it is very difficult. Follow up at [facility] or here in the emergency room if you change your mind about your plan. Referrals: [facility] Res[facility] Scribe Attestation Portions of this note were transcribed by Sharifa Monge. I, Dr. Stevenson personally performed the history, physical exam and medical decision-making; I reviewed and confirmed the accuracy of the information in the transcribed note. Signed by: Miryam Guadarrama, 01/06/2017 0025 Oscar Stevenson MD Jan 05, 2017 23:13 Sharifa Monge Jan 05, 2017 23:22
[2017-01-05] MEDS ORDERED: cloNIDine 0.1 mg Tablet PO ONE (23:25)
== END 2017-01-06 00:40 | disposition home or self-care (01) ==
LOC: SED 21:39
DX: I15.9 Secondary hypertension, unspecified (principal); F10.239 Alcohol dependence with withdrawal, unspecified; Z87.891 Personal history of nicotine dependence

== ENCOUNTER 2017-03-03 16:20 | Emergency (ER) | payer OTHER ==
[~2017-03-03] VITALS: Ht 188 cm; Wt 102.3 kg
[2017-03-03 16:23] VITALS: BP 162/105; PULSE 96; RESP 16; O2SAT 95
--- NOTE | 2017-03-03 16:48 | ED.REPORT ---
HPI-Overdose/Alcohol Toxicity Date of Service Mar 03, 2017 ED Provider: Jermaine Jacobs DO 51 y/o male with a hx of HTN, anxiety and alcohol abuse presents to the ED for alcohol detoxification, onset just prior to arrival. Associated sx include shaking and SOB. He states "I felt like I was going to have a seizure". The pt has been detoxed in the past. He denies seizures due to alcohol withdrawal in the past. [facility] Nursing Notes Stated Complaint: DETOX Chief Complaint: Substance Abuse Nursing Notes Reviewed: Yes Allergies: Coded Allergies: No Known Allergies (Unverified , 03/03/17) Scheduled Amlodipine (Amlodipine) 5 Mg Tablet 5 MG PO DAILY General Time Seen by Provider: 16:29 Chief Complaint Intoxicated, alcohol Hx Obtained From: Patient Arrived By: Walk-in Onset Occurred: Just prior to arrival Symptom Duration: Since onset Severity: Current: No pain currently Severity: Maximum: No pain Recent Healthcare: Recent doctor visit Similar Sx Previous: Yes Past Medical History Past Medical History alcohol abuse Anxiety Reports: Hypertension Past Surgical History 2 knee surgeries Family History Noncontributory Smoking History Former Smoker Social History Alcohol Use: >5 per day Drug Use: Denies drug use Other Social History: Good social support, Local resident Occupation lives alone, 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 Physical Exam Initial Vital Signs Vital Signs (First) Date Time Temp Pulse Resp B/P Pulse Ox O2 Delivery O2 Flow Rate FiO2 03/03/17 16:23 37.6 96 16 162/105 95 Room Air Initial VS: Reviewed, Vital signs normal Head / Eyes: Atraumatic, Normocephalic Neck: Supple, Non-tender, Full range of motion Extremities: Vascular intact, Neuro intact, No swelling, No tenderness Skin: Warm, Dry, No cyanosis General/Constitutional: Awake, Alert, Cooperative Appearance / Presentation: Positive: Intoxicated Calm Respiratory / Chest: Atraumatic, Breath sounds NL, No respiratory distress, No wheezing Cardiovascular: Heart rate NL, Regular rhythm Abdomen: Atraumatic, Soft Neurologic: Oriented X3, Speech NL, No motor deficits, No sensory deficits Not tremulous Psychiatric: Affect NL, Mood NL, Not suicidal, Not homicidal Interpretation & Diagnostics Lab Results Interpretation Lab Results Interpretation: Alcohol = 0.301 repeat ETOH at 1830: 279 urine tox negative Re-Eval/Medical Decision Med Decision/Clinical Course Patient is medically clear for [facility]. Urine tox is negative. Initial breathalyzer 301, repeat breathalyzer is 279 Will start Ativan taper at 2 mg every 6 hours. Also will prescribe amlodipine. Source of Hx: Old records Re-Evaluation/Progress #1: Time of Eval: 18:42 Re-Evaluation/Progress Note: Called [facility] to confirm the pt has a room. They will call back with the time and availability. Re-Evaluation/Progress #2: Time of Eval: 19:19 Re-Evaluation/Progress Note: Called [facility]. They will return call with available time. Re-Evaluation/Progress #3: Time of Eval: 19:40 Re-Evaluation/Progress Note: [facility] returned call and stated a bed is available at 0100. Re-Evaluation/Progress #4: Time of Eval: 19:44 Re-Evaluation/Progress Note: Rechecked pt. Informed the pt a bed is available at 0100. The pt states he is still feeling shaky and believes he will relapse if he goes home. The pt wants to be observed here. Re-Evaluation/Progress #5: Time of Eval: 22:00 Patient Status: Condition improved Re-Evaluation/Progress Note: Rechecked pt. He feels calm now. Discussed the plan to discharge patient around 0100 so he can go straight to [facility]. Pt understands and agrees with the plan. All questions answered. Counseled Regarding: Diagnosis, Need for follow-up, When/why to return to ED Discharge & Departure Impression: Primary Impression: Alcohol abuse )( Condition at Discharge: Clear for alcohol rehab Disposition: Home (to [facility]) Discharge Condition All VS Reviewed: Yes Condition: Stable Additional Instructions: Go directly to [facility]. Use Ativan as prescribed. Take amlodipine daily. Return to the ER as needed if worse. Referrals: [facility] Scribe Attestation Portions of this note were transcribed by Lanny Curry. I, , personally performed the history, physical exam and medical decision-making;I reviewed and confirmed the accuracy of the information in the transcribed note. Signed by Miryam Buchanan. 03/03/17 23:02 copies to: [facility] Jermaine Jacobs DO Mar 03, 2017 16:48 Lanny Curry Mar 03, 2017 17:15
[2017-03-03 20:09] VITALS: BP 162/98; PULSE 94; RESP 20; O2SAT 94
[2017-03-03] MEDS ORDERED: LORazepam 2 mg Tablet PO ONE (20:10)
[2017-03-03] MEDS ORDERED: _LORazepam 2 MG Tablet PO SCH (20:45)
[2017-03-03] MEDS ORDERED: AMLO5TAB2 PO (20:57)
[2017-03-03 21:12] VITALS: BP 143/91; PULSE 91; RESP 20; O2SAT 96
[2017-03-03 23:26] VITALS: BP 142/92; PULSE 104; RESP 20; O2SAT 95
[2017-03-04 00:46] VITALS: BP 138/88; PULSE 96; RESP 18; O2SAT 95
[2017-03-04] MEDS ORDERED: CLON0.1T PO (18:10)
[2017-03-04] MEDS ORDERED: LORA1TAB PO (18:10)
== END 2017-03-04 00:48 | disposition home or self-care (01) ==
LOC: SED 16:20
DX: F10.10 Alcohol abuse, uncomplicated (principal); I10 Essential (primary) hypertension; F41.9 Anxiety disorder, unspecified; Z87.891 Personal history of nicotine dependence

== ENCOUNTER 2017-03-04 16:41 | Emergency (ER) | payer OTHER ==
[~2017-03-04] VITALS: Ht 190.5 cm; Wt 102.3 kg
[~2017-03-04 16:41] MED LIST changes: +AMLO5TAB2 PO; -CHLO25CA10 PO; -CLON0.1T PO; -LORA-303 PO; -LORA2TAB PO
[2017-03-04 16:46] VITALS: BP 159/113; PULSE 89; RESP 15; O2SAT 96
--- NOTE | 2017-03-04 17:24 | ED.REPORT ---
HPI-General Illness Date of Service Mar 04, 2017 ED Provider: Dr. Rowe Pt is a 51 y/o male presenting [facility] due to hypertension in the setting of alcohol withdrawal onset today. The patient has been at [facility] for 2 days including today for alcohol withdrawal. He was prescribed a taper of Ativan which he does not believe is enough. He is experiencing mild tremor despite being on Lorazepam medication. He takes Amlodipine for for BP. [facility] took his BP and found it to be 205/140 earlier today. He was experiencing chest pain at that time which is now resolved. He states he does not normally have such high blood pressure at baseline but typically becomes hypertensive while he goes through withdrawal. Nursing Notes Stated Complaint: HIGH BLOOD PRESSURE Chief Complaint: General Complaint Nursing Notes Reviewed: Yes Allergies: Coded Allergies: No Known Allergies (Unverified , 03/04/17) Scheduled Amlodipine (Amlodipine) 5 Mg Tablet 5 MG PO DAILY Clonidine (Clonidine) 0.1 Mg Tablet 0.1 MG PO BID Scheduled PRN Lorazepam (Lorazepam) 1 Mg Tablet 1 MG PO prn PRN PRN For Insomnia 2mg every 6 hours for 4 doses, (next dose at midnight). then 1mg every 6 hours for 8 doses, then 1mg every 12 hours for 2 doses General Time Seen by MD: 17:23 Chief Complaint Other (HTN) Hx Obtained From: Patient Arrived By: Walk-in Sudden in Onset?: No Onset Occurred: 1 - 4 hours ago Symptom Duration: Since onset Location: : Chest Quality: Painful Severity: Current: No pain currently Severity: Maximum: Mild Similar Sx Previous: Yes Past Medical History Past Medical History Alcohol abuse Anxiety Hypertension Reports: Hypertension Past Surgical History 2 knee surgeries Family History Noncontributory Smoking History Former Smoker Social History Currently in recovery for alcohol abuse - 03/04/17 Previously 30 beers per day Alcohol Use: In recovery Drug Use: Denies drug use Other Social History: Good social support, Local resident Occupation lives alone, no work or school, 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 Physical Exam Vital Signs Vital Signs Date Time Temp Pulse Resp B/P Pulse Ox O2 Delivery O2 Flow Rate FiO2 03/04/17 16:46 36.6 89 15 159/113 96 Initial VS: Reviewed, Vital signs abnormal Head / Eyes: Atraumatic, Normocephalic, PERRL ENT: Mucous membranes moist, Conjunctiva normal, No scleral icterus Neck: Supple, Full range of motion Respiratory: Breath sounds normal, Clear to auscultation, No respiratory distress Cardiovascular: Regular rate & rhythm, Heart sounds normal, Intact distal pulses Extremities: Vascular intact, Neuro intact, No swelling, No tenderness Skin: Warm, Dry, No cyanosis Psychiatric: Mood/affect normal, Behavior normal, Normal thought content General/Constitutional: Awake, Alert, No acute distress, Well appearing, Cooperative, Not toxic appearing BP 162/105 at 18:05 Abdomen: Atraumatic, Soft, Non-tender, No guarding, No rebound, No distention, No palpable mass Organomegaly / Mass / Hernia: Negative: Hepatomegaly, Splenomegaly No ascites Neurologic: Oriented X3, Speech NL, No motor deficits, No sensory deficits Fine tremor Interpretation & Diagnostics Lab Results Interpretation Result Diagram: 03/04/17 1720 03/04/17 1720 Test 03/04/17 17:20 03/04/17 18:01 White Blood Count 4.8th/mm3 (3.8-10.1) Red Blood Count 4.02mil/mm3 (4.40-5.80) Hemoglobin 13.5g/dL (13.8-17.2) Hematocrit 39.7% (41.0-50.0) Mean Corpuscular Volume 98.8fL (81-100) Mean Corpuscular Hemoglobin 33.6pg (27.0-35.0) Mean Corpuscular Hemoglobin Concent 34.0% (32.0-37.0) Red Cell Distribution Width 12.0% (12.3-15.4) Platelet Count 233bil/L (150-400) Neutrophils (%) (Auto) 57.0% (40-74) Lymphocytes (%) (Auto) 20.7% (14-46) Monocytes (%) (Auto) 21.1% (4-12) Eosinophils (%) (Auto) 0.4% (0-5) Basophils (%) (Auto) 0.4% (0-3) Sodium Level 134mEq/L (134-144) Potassium Level 3.7mEq/L (3.5-5.2) Chloride Level 95mEq/L (97-108) Carbon Dioxide Level 24mmol/L (18-29) Blood Urea Nitrogen 7mg/dL (6-24) Creatinine 0.69mg/dL (0.76-1.27) Estimat Glomerular Filtration Rate 128mL/min (>59) Glucose Level 107mg/dL (60-99) Calcium Level 9.0mg/dL (8.5-10.1) Magnesium Level 1.7mg/dL (1.6-2.6) Total Bilirubin 0.6mg/dL (0.0-1.2) Aspartate Amino Transf (AST/SGOT) 130U/L (0-50) Alanine Aminotransferase (ALT/SGPT) 103U/L (0-44) Alkaline Phosphatase 49U/L (25-150) Troponin T < 0.010ug/L (0.0-0.011) Total Protein 7.0g/dL (6.4-8.4) Albumin 4.0g/dL (3.4-5.0) Hold Swanson Top Tube Received (Received) Hold Urine Received (Received) ECG Interpretation Time: 17:44 Interpreted by: ED physician Normal ECG Interpretation: Normal ECG w/ rate of... (89), Normal rate, Normal sinus rhythm, No acute ischemic changes, Normal QRS, Normal axis, Normal intervals, Adequate tracing X-Ray Chest Interpretation Chest Xray Interpretation: IMPRESSION: No acute cardiopulmonary disease process. Dictated by: Mihaela Haynes MD, PhD on 03/04/2017 at 17:26 Approved by: Mihaela Haynes MD, PhD on 03/04/2017 at 17:26 View: Portable, 1 view Interpretation / Wet Read by: Interpret - Radiologist Re-Eval/Medical Decision Med Decision/Clinical Course Significant hypertension secondary to alcohol withdrawal and likely baseline hypertension as well. On the 2 mg standard taper please see discharge instructions. 2 mg given in the emergency department. We will start clonidine 0.1 mg twice a day and continue his amlodipine. [facility] this evening he is feeling better. Workup in the emergency room does not suggest any acute cardiac etiology Time of Eval: 18:00 Re-Evaluation/Progress Note: Pt rechecked. Feeling better after Ativan. Informed pt of discharge back to [facility] pending normal CMP. Counseled Regarding: Diagnosis, Need for follow-up, When/why to return to ED Discharge & Departure Primary Impression: Alcohol withdrawal Complication of substance-induced condition: uncomplicated Qualified Code: F10.230 - Alcohol dependence with withdrawal, uncomplicated Additional Impressions: HTN (hypertension) Hypertension type: unspecified secondary hypertension Qualified Code: I15.9 - Secondary hypertension, unspecified Elevated liver enzymes Disposition: Home Discharge Condition All VS Reviewed: Yes Condition: Stable Patient Instructions: Alcohol Withdrawal (ED) Additional Instructions: There is no evidence for acute heart attack. You need a bit more of an Ativan taper: Restart now at 2mg every 6 hours or 4 doses, next dose at midnight. then 1mg every 6 hours for 8 doses, then 1mg every 12 hours for 2 doses. I've given you a new prescription for this. Begin taking Clonidine 0.1 mg twice per day. You received your first dose in the Emergency Department tonight. I have given you a prescription for 7 days Return to the emergency department for any new or worsening symptoms. Good luck with your sobriety Referrals: [facility] Scribe Attestation Portions of this note were transcribed by Kiran Aguirre. I, Dr. Rowe personally performed the history, physical exam and medical decision-making; I reviewed and confirmed the accuracy of the information in the transcribed note. Signed by Miryam Archuleta, 03/04/17 - [id number] copies to: Nicole Jiménez MD Mar 04, 2017 17:24 KIRAN AGUIRRE Mar 04, 2017 17:29
--- NOTE | 2017-03-04 17:27 | DRSVH ---
PROCEDURE: X-RAY CHEST ONE VIEW, PORTABLE ([id number]) INDICATIONS: Chest pain TECHNIQUE: One view of the chest was acquired. COMPARISON: None. FINDINGS: Surgical changes and devices: None. Lungs and pleura: No pleural effusions or pneumothorax. Lungs are clear. Mediastinum: Mediastinal contours appear normal. Heart size is normal. Bones and chest wall: No suspicious bony lesions. Overlying soft tissues appear unremarkable. IMPRESSION: No acute cardiopulmonary disease process. Dictated by: Mihaela Haynes MD, PhD on 03/04/2017 at 17:26 Approved by: Mihaela Haynes MD, PhD on 03/04/2017 at 17:26
[2017-03-04 17:36] LABS: BASOPHILS % (AUTO) 0.4 % (0-3); EOSINOPHILS % (AUTO) 0.4 % (0-5); MONOCYTES % (AUTO) 21.1 % (4-12); Mean Corpuscular Hemoglobin 33.6 pg (27.0-35.0); Mean Corpuscular Volume 98.8 fL (81-100); Platelet Count 233 bil/L (150-400)
[2017-03-04] MEDS ORDERED: cloNIDine 0.1 mg Tablet PO ONE (17:45)
[2017-03-04] MEDS ORDERED: LORazepam 2 mg Tablet PO ONE (17:45)
[2017-03-04 18:02] LABS: TROPONIN T < 0.010 ug/L (0.0-0.011)
[2017-03-04 18:07] LABS: Magnesium 1.7 mg/dL (1.6-2.6)
[2017-03-04] MEDS ORDERED: LORA1TAB PO (18:10)
[2017-03-04] MEDS ORDERED: CLON0.1T PO (18:10)
[2017-03-04 18:32] VITALS: BP 155/103; PULSE 87; RESP 16; O2SAT 96
== END 2017-03-04 18:34 | disposition home or self-care (01) ==
LOC: SED 16:41
DX: F10.230 Alcohol dependence with withdrawal, uncomplicated (principal); I15.9 Secondary hypertension, unspecified; R94.5 Abnormal results of liver function studies; Z87.891 Personal history of nicotine dependence

== ENCOUNTER 2017-05-10 15:18 | Emergency (ER) | payer OTHER ==
[~2017-05-10] VITALS: Ht 188 cm; Wt 104.5 kg
[~2017-05-10 15:18] MED LIST changes: +CLON0.1T PO; +LORA1TAB PO
[2017-05-10 15:34] VITALS: BP 126/81; PULSE 84; RESP 16; O2SAT 97
--- NOTE | 2017-05-10 15:48 | ED.REPORT ---
HPI-Overdose/Alcohol Toxicity Date of Service May 10, 2017 ED Provider: Dr. Jermaine Covarrubias MD A 51 year old male with a history of alcohol abuse, anxiety, and hypertension presents to the ED with a headache secondary to alcohol withdrawal that began 3 days ago. He endorses an intense but transient dizzy feeling when he turns his head. He states that his toes have also been numb and tingly for the past 2 months. The patient reports that he began to taper himself off of EtOH 3 days ago and has experienced his typical withdrawal symptoms including tremors, heart palpitations, nausea, vomiting, insomnia, agitation, diarrhea and diaphoresis which have improved since onset. The patient presents to the ED this afternoon because of an increasingly worse headache, dizziness and dyspnea that is different from his previous periods of withdrawal. The patient denies any recent fever, nasal congestion, sneezing, dysuria, bloody stool, bloody vomit or seizures. He does not wish to be placed at [facility] at this time. Nursing Notes Stated Complaint: DIZZY Chief Complaint: Substance Abuse Nursing Notes Reviewed: Yes Allergies: Coded Allergies: No Known Allergies (Unverified , 05/10/17) Scheduled Amlodipine (Amlodipine) 5 Mg Tablet 5 MG PO DAILY Clonidine (Clonidine) 0.1 Mg Tablet 0.1 MG PO BID Lorazepam (Ativan) 1 Mg Tablet 1 MG PO DIRECTED 1mg BID for one day, then 1/2mg BID for one day, then 1/2 mg on the final day Scheduled PRN Lorazepam (Lorazepam) 1 Mg Tablet 1 MG PO prn PRN PRN For Insomnia 2mg every 6 hours for 4 doses, (next dose at midnight). then 1mg every 6 hours for 8 doses, then 1mg every 12 hours for 2 doses General Time Seen by Provider: 15:50 Chief Complaint Other (Withdrawal headache) Hx Obtained From: Patient Arrived By: Walk-in Onset Occurred: 3 days ago Symptom Duration: Since onset Location: : Head Quality: Aching Severity: Current: Moderate Severity: Maximum: Moderate Associated with: Reports: Diarrhea, Headache, Nausea, Palpitations, Shortness of breath, Sweating, Vomiting, Denies: Seizure Pertinent Negative: Pt denies other symptoms Recent Healthcare: No recent hospitalization, Recent doctor visit Risk-Overdose/Alcohol Tox )( Suicide Risk Stratification RF Statements: Risk factors reviewed Past Medical History Past Medical History Alcohol abuse Anxiety Hypertension Past Surgical History Knee surgery x2 Family History Noncontributory Smoking History Former Smoker Social History Currently in recovery for alcohol abuse - 05/10/17 (3 days sober) Previously 30 beers per day Alcohol Use: In recovery Drug Use: Denies drug use Other Social History: Good social support, Local resident Occupation lives alone, 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 Male: Denies Dysuria Allergy / Immune: Denies: Sneezing Physical Exam Initial Vital Signs Vital Signs (First) Date Time Temp Pulse Resp B/P Pulse Ox O2 Delivery O2 Flow Rate FiO2 05/10/17 15:34 37.4 84 16 126/81 97 Room Air Initial VS: Reviewed Head / Eyes: Atraumatic, Normocephalic, PERRL Neck: Supple, Non-tender, Full range of motion Extremities: Vascular intact, Neuro intact, No swelling, No tenderness Skin: Warm, Dry, No cyanosis General/Constitutional: Awake, Alert, No acute distress Respiratory / Chest: Atraumatic, Breath sounds NL, Breath sounds = bilat, No respiratory distress Cardiovascular: Heart rate NL, Regular rhythm, Heart sounds NL, Peripheral circulation NL Periph CV / BP Differential: Positive: Peripheral pulses 2+ (bilateral posterior tibial pulses 2+) Abdomen: Atraumatic, Soft, Non-tender Neurologic: Oriented X3, Speech NL, No motor deficits, No sensory deficits, CN II - XII intact, Reflexes equal bilat, Cerebellar NL, Memory NL, Gait NL Movement Abnormality: Negative: Tremor Psychiatric: Affect NL, Mood NL, Judgment/insight NL Interpretation & Diagnostics Lab Results Interpretation Result Diagram: 05/10/17 1626 05/10/17 1626 Test 05/10/17 16:26 White Blood Count 4.8th/mm3 (3.8-10.1) Red Blood Count 4.09mil/mm3 (4.40-5.80) Hemoglobin 13.7g/dL (13.8-17.2) Hematocrit 39.4% (41.0-50.0) Mean Corpuscular Volume 96.3fL (81-100) Mean Corpuscular Hemoglobin 33.5pg (27.0-35.0) Mean Corpuscular Hemoglobin Concent 34.8% (32.0-37.0) Red Cell Distribution Width 11.8% (12.3-15.4) Platelet Count 263bil/L (150-400) Neutrophils (%) (Auto) 52.7% (40-74) Lymphocytes (%) (Auto) 23.3% (14-46) Monocytes (%) (Auto) 22.2% (4-12) Eosinophils (%) (Auto) 1.0% (0-5) Basophils (%) (Auto) 0.6% (0-3) Sodium Level 137mEq/L (134-144) Potassium Level 4.1mEq/L (3.5-5.2) Chloride Level 102mEq/L (97-108) Carbon Dioxide Level 18mmol/L (18-29) Blood Urea Nitrogen 16mg/dL (6-24) Creatinine 0.95mg/dL (0.76-1.27) Estimat Glomerular Filtration Rate 88mL/min (>59) Glucose Level 113mg/dL (60-99) Calcium Level 9.0mg/dL (8.5-10.1) Magnesium Level 2.1mg/dL (1.6-2.6) Total Bilirubin 0.4mg/dL (0.0-1.2) Aspartate Amino Transf (AST/SGOT) 73U/L (0-50) Alanine Aminotransferase (ALT/SGPT) 103U/L (0-44) Alkaline Phosphatase 39U/L (25-150) Total Protein 7.3g/dL (6.4-8.4) Albumin 4.4g/dL (3.4-5.0) Hold Swanson Top Tube Received (Received) CT Head Interpretation IMPRESSION: No acute intracranial abnormalities. Dictated by: Isaiah Ness M.D. on 05/10/2017 at 16:22 Study: Head CT no contrast Interpretation / Wet Read by: Interpret - Radiologist Re-Eval/Medical Decision Med Decision/Clinical Course Patient presents with signs and symptoms of transient dizziness, suspect this is from alcohol withdrawal, unlikely to be stroke, he has no focal neurologic deficits, he is a normal blood pressure, his symptoms are transient with head turning. He is feeling better after Ativan. [facility], however he has gone through detox for the most part at home and does not wish to go to [facility]. He does have a reliable adult with him and his significant other agrees to monitor him and keep him away from alcohol as well as help to dose his lorazepam. He is placed on a gentle Ativan taper. Return and follow-up precautions given Re-Evaluation/Progress : Time of Eval: 17:23 Patient Status: Condition improved Re-Evaluation/Progress Note: Patient condition is re-evaluated. He is informed of his current results and the intended treatment plan. All of the patient's questions about his likely diagnosis and disposition are addressed. He requests Lorazepam for his withdrawal symptoms. The patient's significant other agrees to dose the medication. He understands and agrees with the plan. Counseled Regarding: Diagnosis, Lab results, Need for follow-up, When/why to return to ED Discharge & Departure Impression: Primary Impression: Dizziness Additional Impression: Alcohol withdrawal Disposition: Home Discharge Condition All VS Reviewed: Yes Condition: Improved Patient Instructions: Acute Headache (ED), Alcohol Withdrawal (ED) Additional Instructions: Thank you for trusting us with your care this afternoon. Your emergency department evaluation today including examination, lab work and head CT are reassuring that there is no dangerous cause for concern at this time. Take Lorazepam taper as directed. Please continue to abstain from alcohol. Schedule a follow-up appointment with your primary care physician in the 1-2 days for a recheck and discuss the numb sensation in your feet. Please return to the emergency department for any new or worsening conditions including any worsening headache, seizures, fevers, chills, persistent nausea, vomiting, chest pain, shortness or breath, or lightheadedness. Referrals: [facility] (PCP) [facility] Scribe Attestation Portions of this note were transcribed by Zofai Mojica. I, Dr. Jermaine Covarrubias personally performed the history, physical exam and medical decision- making; I reviewed and confirmed the accuracy of the information in the transcribed note. Jermaine Jacobs DO May 10, 2017 15:48 ZOFIA MOJICA May 10, 2017 15:52
[2017-05-10] MEDS ORDERED: LORazepam 2 mg Tablet PO ONE (16:00)
--- NOTE | 2017-05-10 16:27 | DRSVH ---
PROCEDURE: CT BRAIN WITHOUT CONTRAST ([id number]) INDICATIONS: 51 year-old male with dizziness. TECHNIQUE: Noncontrast 4.5 mm thick angled axial sections acquired from the foramen magnum to the vertex, with c oronal reformats. COMPARISON: None. FINDINGS: Image quality: Excellent. CSF spaces: Basal cisterns are patent. No extra-axial fluid collections. Ventricles are normal in size and shape. Brain: No midline shift. No intracranial masses or hemorrhage. There is mild periventricular white matter chronic small vessel ischemic change. Skull and face: Calvarium and visualized facial bones are intact, without suspicious lesions. Sinuses: Visualized sinuses and mastoids are clear. IMPRESSION: No acute intracranial abnormalities. Dictated by: Isaiah Ness M.D. on 05/10/2017 at 16:22 Approved by: Isaiah Ness M.D. on 05/10/2017 at 16:25
[2017-05-10 16:42] LABS: BASOPHILS % (AUTO) 0.6 % (0-3); MONOCYTES % (AUTO) 22.2 % (4-12); Mean Corpuscular Hemoglobin 33.5 pg (27.0-35.0); Mean Corpuscular Volume 96.3 fL (81-100); NEUTROPHILS % (AUTO) 52.7 % (40-74); Platelet Count 263 bil/L (150-400)
[2017-05-10 17:10] LABS: Magnesium 2.1 mg/dL (1.6-2.6)
[2017-05-10] MEDS ORDERED: LORA-303 PO (17:27)
[2017-05-10 17:39] VITALS: BP 135/91; PULSE 81; RESP 15; O2SAT 96
== END 2017-05-10 17:30 | disposition home or self-care (01) ==
LOC: SED 15:18
DX: R42 Dizziness and giddiness (principal); F10.239 Alcohol dependence with withdrawal, unspecified; I10 Essential (primary) hypertension; Z87.891 Personal history of nicotine dependence; Z79.899 Other long term (current) drug therapy